=== PATIENT | female | born 1975 | race Caucasian/White ===

== ENCOUNTER 2017-11-30 10:38 | Emergency (ER) | payer MEDICAID, MEDICARE | END 2017-11-30 12:28 | disposition home or self-care (01) | LOC: D.ER 10:38 | DX: J20.9 Acute bronchitis, unspecified (principal); J30.9 Allergic rhinitis, unspecified; I10 Essential (primary) hypertension; E03.9 Hypothyroidism, unspecified ==

== ENCOUNTER 2018-01-02 09:24 | Emergency (ER) | payer OTHER, MEDICARE ==
[~2018-01-02] VITALS: Ht 165.1 cm; Wt 77.3 kg
[2018-01-02 09:33] VITALS: Ht 165.1 cm; Wt 77.3 kg
[2018-01-02] MEDS ORDERED: HYZAAR 100-25 T1 TAB PO (09:35)
[2018-01-02] MEDS ORDERED: SYNTHROID112 MCG PO (09:35)
[2018-01-02] MEDS ORDERED: CLARITIN 10 MG10 MG PO (09:36)
[2018-01-02] MEDS ORDERED: SINGULAIR10 MG PO (09:36)
[2018-01-02] MEDS ORDERED: K-TAB10 MEQ PO ×2 (09:36→11:13)
[2018-01-02] MEDS ORDERED: CATAPRES-T1 PATCH.WK TD (09:36)
[2018-01-02] MEDS ORDERED: PROVENTIL HFA6.7 GM INH (11:08)
[2018-01-02] MEDS ORDERED: OMNICEF300 MG PO (11:08)
[2018-01-02] MEDS ORDERED: ZOFRAN8 MG PO (11:13)
[2018-01-02 11:47] VITALS: BP 132/98
== END 2018-01-02 11:36 | disposition home or self-care (01) ==
LOC: D.ER 09:24
DX: J01.90 Acute sinusitis, unspecified (principal); J20.9 Acute bronchitis, unspecified